=== PATIENT | female | born 1965 | race Asian ===

== ENCOUNTER 2019-01-09 08:17 | Day surgery (SDC) | payer OTHER, SELFPAY ==
[2019-01-09] MEDS: PROPARACAINE 0.5% OPHTH SOL 2 DROPS EYE-OP (09:48)
[2019-01-09] MEDS: CATARACT EYE COMPOUND (10 DROPS/SYRINGE) 3 DROPS EYE-OP ×3 (09:50→10:04)
[2019-01-09 09:52] VITALS: BP 126/76; PULSE 64; RESP 14; TEMP 36.5; O2SAT 99; BMI 29.9
--- NOTE | 2019-01-09 10:27 | PM.PREOP ---
Pre-operative Note Interval Note History & Physical reviewed/Exam performed by Physician: No Changes to H&P: No
--- NOTE | 2019-01-09 10:27 | PM.OP.1 ---
Operative Date/Time/Diagnoses Pre-op diagnosis: Nuclear cataract right eye Procedure & Clinicians Procedure: Cataract Surgery Same procedure as scheduled: Yes Surgeon: Kian Pierce Anesthesia Type: MAC +/- and Sedation Operative Notes Procedure in detail: Patient brought to the operating suite. Tetracaine drops placed in the right eye. Patient was prepped and draped in sterile manner. Wire lid speculum was placed in the eye. Betadine drops were placed on the eye. This was irrigated. Lidocaine jelly was placed on the eye. A paracentesis port was created with a side-port blade. 0.1 mL 1% preservative free lidocaine was injected into the anterior chamber. The anterior chamber was deepened with viscoelastic. 2.6 mm keratome was used to create a temporal clear corneal incision. Cystotome and Utrata forceps were used to create continuous tear capsulorrhexis. Balanced salt solution was used to hydro dissect the nucleus. The Miloop was used to crack the nucleous. The phacoemulsification handpiece was inserted and the nucleus was removed using the stop and chop technique. The irrigation aspiration handpiece was inserted and the remaining cortex was removed. Anterior chamber was deepened with viscoelastic. An Martinez ZCB00 intraocular lens with a power of 23.0 was injected into the capsular bag. Irrigation aspiration handpiece was inserted and the remaining viscoelastic was removed. Incision was hydrated with balanced salt solution and found to be leak free with pressure with Weck-Shanika sponges. 0.1 mL Vigamox injected anterior chamber. 0.3 mL Kenalog 10 mg was injected subconjunctivally. Lid speculum was removed. The patient left the operating room in excellent condition. Complications: none Post-operative Condition: stable Disposition: same day surgery
[2019-01-09] MEDS: LIDOCAINE JELLY 2% 5 ML 1 APPLIC TOP (11:08)
[2019-01-09] MEDS: CHONDROIDTIN/SOD HYALURONATE 1.05 ML SYRINGE INTRAOCULA (11:08)
[2019-01-09] MEDS: MOXIFLOXACIN INJ 5 MG/ML VIAL EYE-OP (11:08)
[2019-01-09] MEDS: TETRACAINE 0.5% OPHTH DROPS 4 ML 2 DROPS EYE-OP (11:09)
[2019-01-09] MEDS: PHENYLEPHRINE/LIDOCAINE VIAL (OR) 0.2 ML EYE-OP (11:09)
[2019-01-09] MEDS: BALANCED SALT IRRIG SOLN NO.2 500 ML, EPINEPHrine 1 MG IRR (11:09)
[2019-01-09] MEDS: TRIAMCINOLONE 50 MG/5 ML VIAL INJ (11:09)
[2019-01-09 11:30] VITALS: BP 130/79; PULSE 77; RESP 16; TEMP 36.1; O2SAT 99
[2019-01-09] MEDS: LACTATED RINGERS 1,000 ML 1000 ML IV (11:43)
[2019-01-09] MEDS: FAMOTIDINE 20 MG/50 ML PIGGYBACK 200 MG IV (11:44)
--- NOTE | 2019-01-09 11:47 | SUR.PHASEII ---
Pt nauseated on arrival, diaphoretic, cool towel to neck, zofran given by anesthesiologist, pt still nauseated, Dr Cast at bedside, VSS, IV fluid bolus started and famotidine given.
[2019-01-09 11:50] VITALS: BP 120/65; PULSE 70; RESP 16; TEMP 36.1; O2SAT 99
--- NOTE | 2019-01-09 11:55 | SUR.PHASEII ---
Pt still vomiting, dr ott aware, scopoamione patch and narcan ordered.
[2019-01-09] MEDS: SCOPOLAMINE 1 PATCH TOP (12:02)
[2019-01-09] MEDS: NALOXONE 0.4 MG/ML VIAL 0.1 MG IV (12:28)
[2019-01-09 12:31] VITALS: BP 119/69; PULSE 79; RESP 16; O2SAT 99
[2019-01-09] MEDS: METOCLOPRAMIDE 10 MG/2 ML INJ IV (12:57)
--- NOTE | 2019-01-09 14:28 | SUR.PHASEII ---
Narcan x 2 given then pt still vomiting, Marielos rn spoke with dr ott to bedside, reglan ordered, and given pt w/ and wanting to go home, called and is on his way. no further nausea
[2019-01-09 14:31] VITALS: BP 121/78; PULSE 88; RESP 16; TEMP 36.1; O2SAT 97
--- NOTE | 2019-01-09 14:33 | SUR.PHASEII ---
d/c instructions discussed earlier with . he vpiced an understanding.
--- NOTE | 2019-01-09 16:02 | SUR.PHASEII ---
Pt ready to go home, family called, returned to pick pt up. Pt still slightly queasy, but not vomiting or dry heaving.
== END 2019-01-09 15:00 | disposition home or self-care (01) ==
LOC: OR 08:18
PROVIDERS: Family Provider Family Medicine; PCP Family Medicine; Visit Provider Ophthalmology
PROC: (CPT 66984; principal; 2019-01-09 10:15)
DX: H25.11 Age-related nuclear cataract, right eye (principal)
CPT/HCPCS: 66984; J0171; J2250; J2310; J2405; J2765; J3010; J3301

== ENCOUNTER 2019-01-23 10:59 | Day surgery (SDC) | payer OTHER, SELFPAY ==
[2019-01-23 11:19] VITALS: BMI 29.2
[2019-01-23] MEDS: PROPARACAINE 0.5% OPHTH SOL 2 DROPS EYE-OP (11:19)
[2019-01-23] MEDS: CATARACT EYE COMPOUND (10 DROPS/SYRINGE) 3 DROPS EYE-OP (11:23)
[2019-01-23 11:24] VITALS: BP 145/86; PULSE 67; RESP 16; TEMP 36.6; O2SAT 100
--- NOTE | 2019-01-23 11:44 | PM.PREOP ---
Pre-operative Note Interval Note History & Physical reviewed/Exam performed by Physician: No Changes to H&P: No
--- NOTE | 2019-01-23 11:44 | PM.OP.1 ---
Operative Date/Time/Diagnoses Pre-op diagnosis: Nuclear Cataract Left eye Post-op diagnosis: same Procedure & Clinicians Surgeon: Kian Pierce Anesthesia Type: MAC +/- and Sedation Operative Notes Procedure in detail: Patient brought to the operating suite. Tetracaine drops placed in the left eye. Patient was prepped and draped in sterile manner. Wire lid speculum was placed in the eye. Betadine drops were placed on the eye. This was irrigated. Lidocaine jelly was placed on the eye. A paracentesis port was created with a side-port blade. 0.1 mL 1% preservative free lidocaine was injected into the anterior chamber. The anterior chamber was deepened with viscoelastic. 2.6 mm keratome was used to create a temporal clear corneal incision. Cystotome and Utrata forceps were used to create continuous tear capsulorrhexis. Balanced salt solution was used to hydro dissect the nucleus. The phacoemulsification handpiece was inserted and the nucleus was removed using the stop and chop technique. The irrigation aspiration handpiece was inserted and the remaining cortex was removed. Anterior chamber was deepened with viscoelastic. An Martinze ZCB00 intraocular lens with a power of 23.5 was injected into the capsular bag. Irrigation aspiration handpiece was inserted and the remaining viscoelastic was removed. Incision was hydrated with balanced salt solution and found to be leak free with pressure with Weck-Shanika sponges. 0.1 mL Vigamox injected anterior chamber. 0.3 mL Kenalog 10 mg was injected subconjunctivally. Lid speculum was removed. The patient left the operating room in excellent condition. Complications: none Post-operative Condition: stable Disposition: same day surgery
--- NOTE | 2019-01-23 11:59 | SUR.OPER ---
Supine on eye stretcher, head on extension cradle secured with tape. Arms tucked at sides with blanket. Pillow under knees.
[2019-01-23] MEDS: LIDOCAINE JELLY 2% 5 ML 1 APPLIC TOP (12:02)
[2019-01-23] MEDS: CHONDROIDTIN/SOD HYALURONATE 1.05 ML SYRINGE INTRAOCULA (12:02)
[2019-01-23] MEDS: PHENYLEPHRINE/LIDOCAINE VIAL (OR) 0.2 ML EYE-OP (12:03)
[2019-01-23] MEDS: MOXIFLOXACIN INJ 5 MG/ML VIAL EYE-OP (12:03)
[2019-01-23] MEDS: TRIAMCINOLONE 50 MG/5 ML VIAL INJ (12:04)
[2019-01-23] MEDS: TETRACAINE 0.5% OPHTH DROPS 4 ML 2 DROPS EYE-OP (12:04)
[2019-01-23] MEDS: BALANCED SALT IRRIG SOLN NO.2 500 ML, EPINEPHrine 1 MG IRR (12:05)
[2019-01-23 12:15] VITALS: BP 122/81; PULSE 64; RESP 15; TEMP 36.5; O2SAT 96
--- NOTE | 2019-01-23 13:24 | SUR.PHASEII ---
SHIMON russell per Dr. Morse.
--- NOTE | 2019-01-23 13:24 | SUR.PHASEII ---
1220 pt denied nausea or pain. Requested to discharge.
== END 2019-01-23 12:28 | disposition home or self-care (01) ==
PROVIDERS: Family Provider Family Medicine; PCP Family Medicine; Visit Provider Ophthalmology
PROC: (CPT 66984; principal; 2019-01-23 12:45)
DX: H25.12 Age-related nuclear cataract, left eye (principal)
CPT/HCPCS: 66984; J0171; J2250; J2405; J2704; J3010; J3301

== ENCOUNTER 2020-05-30 18:23 | Emergency (ER) | payer OTHER, SELFPAY ==
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
[2020-05-30 18:32] VITALS: PULSE 78; RESP 16; O2SAT 97
[2020-05-30] MEDS: SODIUM CHLORIDE 0.9% 1,000 ML 150 ML IV (18:36)
[2020-05-30] MEDS: ONDANSETRON 4 MG/2 ML INJ IV (18:36)
[2020-05-30 18:39] VITALS: BP 187/86; PULSE 75; RESP 24; TEMP 37.1; O2SAT 97; BMI 28.8
[2020-05-30 18:58] LABS: Add Manual Diff / Slide Review NO; Basophils Absolute Auto 100 /uL (0-100); Basophils Percent Auto 0.6 % (0-2); Eosinophils Absolute Auto 200 /uL (0-450); Eosinophils Percent Auto 1.4 % (2-4); Hematocrit 43.1 % (36-46); Lymphocytes Absolute Auto 4900 /uL (1100-4500); Lymphocytes Percent Auto 37.1 % (25-40); Mean Corpuscular HGB Conc 32.4 % (30-36); Mean Corpuscular Hemoglobin 26.9 PG (26-34); Mean Corpuscular Volume 83.1 fL (80-100); Monocytes Absolute Auto 800 /uL (0-900); Neutrophils Absolute Auto 7200 /uL (1500-7000); Neutrophils Percent Auto 54.9 % (50-75); Platelet Count 302 X10^3/uL (150-400); Red Blood Cell Count 5.19 X10^6/uL (4.0-5.2); Red Cell Distribution Width 13.8 % (11.6-14.8); White Blood Cell Count 13.2 X10^3/uL (4.5-11.0)
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
[2020-05-30 19:00] VITALS: BP 173/84; PULSE 81; RESP 16; O2SAT 95
[2020-05-30 19:06] LABS: Alanine Aminotransferase 22 IU/L (<35); Albumin 4.2 g/dL (3.5-5.0); Albumin Globulin Ratio 1.2 (1.0-2.8); Alkaline Phosphatase 143 U/L (38-126); Aspartate Aminotransferase 24 IU/L (14-36); BUN Creatinine Ratio 41.9 (6-22); Bilirubin Total 0.4 mg/dL (0.2-1.3); Blood Urea Nitrogen 18 mg/dL (7-17); Calcium 9.1 mg/dL (8.4-10.2); Carbon Dioxide 26 mmol/L (22-32); Chloride 103 mmol/L (98-107); Creatine Kinase 169 U/L (30-135); Estimated Glomerular Filt Rate > 60.0 mL/min (>60); Ethanol (ETOH) < 10 mg/dL; Globulin 3.4 g/dL (1.7-4.1); Glucose 250 mg/dL (70-100); HEMOLYSIS < 15 (0-50); Lipase 114 U/L (23-300); Potassium 3.3 mmol/L (3.4-5.1); Sodium 135 mmol/L (137-145); Total Protein 7.6 g/dL (6.3-8.2)
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
[2020-05-30 19:17] LABS: Troponin I < 0.012 ng/mL (0.01-0.034)
[2020-05-30 19:21] LABS: CKMB % Relative Index 1.6 % (1.5-5.0); Creatine Kinase MB 2.66 ng/mL (<2.37)
[2020-05-30 19:47] LABS: Bacteria Urine None Seen; RBC Urine None Seen (0-5/HPF)
[2020-05-30 19:48] LABS: Appearance Urine UA CLEAR; Bilirubin Urine UA NEGATIVE (NEGATIVE); Color Urine UA YELLOW; Glucose Urine UA 1+ g/dL (Negative); Ketones Urine UA TRACE (NEGATIVE); Leukocyte Esterase Urine UA NEGATIVE (NEGATIVE); Nitrite Urine UA NEGATIVE (Negative); Occult Blood Urine UA NEGATIVE (Negative); Protein Urine UA NEGATIVE (Negative); Urobilinogen Urine UA 0.2 E.U./dL (0.2)
[2020-05-30 20:00] VITALS: PULSE 98; RESP 21; O2SAT 94
[2020-05-30 20:02] LABS: Culture Indicated Urine Cult Not Indicated; Squamous Epithelial Cell Urine 1-5 /HPF (0-5/HPF); WBC Urine 1-5/HPF (0-5/HPF)
[2020-05-30 20:21] VITALS: BP 138/73; PULSE 92; RESP 19; O2SAT 94
[2020-05-30] MEDS: ONDANSETRON 4 MG ODT PREPACK 1 BOTTLE MISC (20:28)
[2020-05-30] MEDS: CYCLOBENZAPRINE 10 MG PREPACK 1 BOTTLE MISC (20:29)
== END 2020-05-30 20:43 | disposition home or self-care (01) ==
PROVIDERS: Emergency Provider Emergency Medicine; Family Provider Family Medicine; PCP Family Medicine
DX: S16.1XXA Strain of muscle, fascia and tendon at neck level, initial encounter (principal); S23.9XXA Sprain of unspecified parts of thorax, initial encounter; S80.02XA Contusion of left knee, initial encounter; M54.6 Pain in thoracic spine; R11.0 Nausea; V89.2XXA Person injured in unspecified motor-vehicle accident, traffic, initial encounter
CPT/HCPCS: 36415; 70450; 71045; 71260; 72125; 72170; 74177; 80053; 80320; 81001; 82550; 82553; 83690; 84484; 85025; 86850; 86900; 86901; 93005; 96361; 96374; 99284; 99285; J2405

== ENCOUNTER → 2021-03-30 14:14 | Outpatient (CLI) | payer OTHER, SELFPAY ==
--- NOTE | 2021-03-30 14:17 | DI.MRI.S_ITS ---
PROCEDURE: MR KNEE RT WO CON INDICATIONS: Unspecified internal derangement of right knee TECHNIQUE: Noncontrast sagittal PD fast spin echo and T2 fast spin echo with fat saturation, sagittal 3-D FLASH with fat saturation; coronal T1 spin echo and PD fast spin echo with fat saturation, and axial PD fast spin echo with fat saturation through the knee. COMPARISON: None. FINDINGS: Image quality: Excellent. Menisci: Medial meniscus is grossly intact. There is complex tear involving anterior horn of lateral meniscus extending to both superior and inferior articulating surfaces. The meniscal root ligaments appear intact. Cruciate ligaments: Myxoid degenerative changes and low-grade intrasubstance partial-thickness tear involving anterior cruciate ligament is seen without full-thickness ACL rupture. PCL is intact. Medial structures: Low-grade MCL sprain is noted. The posterior oblique ligament, semimembranosus tendon insertions, oblique popliteal ligament, and meniscocapsular junction appear intact. Visualized portions of the pes anserinus tendons appear normal. No abnormal bursal fluid. Lateral structures: There is low-grade LCL sprain. The long and short heads of the biceps femoris tendon appear intact. The popliteus tendon appears normal; the popliteofibular ligament appears intact. The posterosuperior and anteroinferior popliteomeniscal fascicles appear intact. The arcuate and fabellofibular ligaments appear intact, on either side of the lateral inferior geniculate artery. Iliotibial band appears normal. Anterior structures: The quadriceps and patellar tendons appear intact. Patellar alignment is normal. No femoral trochlear dysplasia or ventral trochlear prominence. No edema in the infrapatellar fat pad. Bones and cartilage: Mild tricompartmental osteoarthritis and low-grade chondromalacia is seen. No fracture or dislocation. Joint space: There is small to moderate amount of joint fluid, no gross intra-articular loose bodies. There is a small Trejo's cyst. Normal appearing synovial plicae are incidentally noted. IMPRESSION: 1. Complex tear involving anterior horn of lateral meniscus extending to both superior and inferior articulating surfaces. No definite focal medial meniscal tear. 2. Myxoid degenerative changes and low-grade intrasubstance partial-thickness tear involving anterior cruciate ligament. No full-thickness ACL rupture. PCL is intact. 3. Low-grade MCL and LCL sprain. 4. Mild tricompartmental osteoarthritis and low-grade chondromalacia. No fracture or dislocation. Small to moderate joint effusion, no gross loose bodies. Small popliteal cyst. Dictated by: Kj Blank M.D. on 03/30/2021 at 15:35 Approved by: Kj Blank M.D. on 03/30/2021 at 15:38
== END ==
PROVIDERS: Family Provider Family Medicine; PCP Family Medicine; Referring Provider Orthopaedic Surgery; Visit Provider Orthopaedic Surgery
DX: S83.271A Complex tear of lateral meniscus, current injury, right knee, initial encounter (principal); S83.511A Sprain of anterior cruciate ligament of right knee, initial encounter; S83.411A Sprain of medial collateral ligament of right knee, initial encounter; S83.421A Sprain of lateral collateral ligament of right knee, initial encounter; M17.11 Unilateral primary osteoarthritis, right knee; M94.261 Chondromalacia, right knee
CPT/HCPCS: 73721

== ENCOUNTER 2022-10-27 08:27 | Emergency (ER) | payer OTHER, SELFPAY ==
[2022-10-27 08:31] VITALS: BP 131/84; PULSE 74; RESP 19; TEMP 36.8; O2SAT 97; BMI 26.4
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
--- NOTE | 2022-10-27 08:35 | ED_ITS ---
HPI - General Adult General Chief complaint: Wound/Laceration Stated complaint: L&I cut fingers Time Seen by Provider: 10/27/22 08:33 History of Present Illness HPI narrative: 57-year-old female nonsmoker presents with a work-related injury to the fingers on her left hand. She was working at a local [employer] and cut her fingers on saw, most notably her middle finger has a deep cut resulting in pain and bleeding. She denies obvious numbness, tingling or weakness. She states her tetanus will need to be updated. She is otherwise well and free of complaint. Related Data Home Medications Medication Instructions Recorded Confirmed ibuprofen 200 mg tablet (Advil) 400 mg PO Q6H PRN Pain (Scale 01/23/19 11/23/21 Score 1-3) Previous Rx's Medication Instructions Recorded cyclobenzaprine 10 mg tablet 10 mg PO TID PRN muscle spasm #14 05/30/20 tabs hydrocodone 5 mg-acetaminophen 325 1 tab PO Q4-6H PRN pain #10 tabs 05/30/20 mg tablet ketorolac 10 mg tablet 10 mg PO Q6H PRN pain #14 tabs 05/30/20 ondansetron 4 mg disintegrating 4 mg PO TID-QID PRN nausea and 05/30/20 tablet vomiting #10 tabs benzonatate 100 mg capsule 100 mg PO BID-TID PRN cough #14 04/27/21 caps cephalexin 500 mg capsule 500 mg PO Q6H 7 days #28 caps 10/27/22 hydrocodone 5 mg-acetaminophen 325 1 tab PO Q4-6H PRN pain #10 tabs 10/27/22 mg tablet ondansetron 4 mg disintegrating 4 mg PO TID-QID PRN nausea and 10/27/22 tablet vomiting #10 tabs Allergies Allergy/AdvReac Type Severity Reaction Status Date / Time tramadol AdvReac Vomiting Verified 10/27/22 09:22 Review of Systems Review of Systems Narrative: GENERAL: Denies chills, fatigue, malaise, fever, sweats. HEENT: Denies sinus pain, ear pain, sore throat, difficulty swallowing, dizziness. RESPIRATORY: Denies dyspnea, cough, wheezing, hemoptysis, sputum. CARDIOVASCULAR: Denies chest pain, palpitations, orthopnea, edema, GASTROINTESTINAL: Denies nausea, vomiting, abdominal pain, diarrhea, constipation, melena. : Denies dysuria, frequency, incontinence, hematuria, urinary retention. MUSCULOSKELETAL: See HPI SKIN: Denies rash, skin lesions, or other NEUROLOGIC: Denies weakness, headache, numbness, change in speech, confusion, seizures, incoordination. PSYCHIATRIC: No concerning psychosocial issues. 12 point review of systems is negative except for those stated above Patient History Surgical History History of Social History (System 10/27/22 @ 09:22 by Christy Vigil) household members: spouse and children Smoking Status: Never smoker Exam Narrative Exam Narrative: GENERAL: [57] year old patient appears stated age. Well-developed patient, in mild distress. HEAD: Atraumatic. Normocephalic. EYES: Pupils equal round and reactive. Extraocular motions intact. No scleral icterus. No injection or drainage. ENT: Nose without bleeding, purulent drainage. Throat without erythema, tonsillar hypertrophy or exudate. Airway patent. NECK: Trachea midline. Non tender CARDIOVASCULAR: Regular rate and rhythm without murmurs, gallops, or rubs. RESPIRATORY: Clear to auscultation. Breath sounds equal bilaterally. No wheezes, rales, or rhonchi. GASTROINTESTINAL: Abdomen soft, non-tender, nondistended. EXTREMITIES: Left middle with partial tip avulsion, oozing bleeding, no visualized bone, foreign body or tendon involvement. No nail, nail bed or nail fold involvement. Slightly less than 1 x 1 cm. Ring finger has a very superficial laceration through the tip of the nail BACK: Nontender without deformity or crepitance. No flank tenderness. NEURO: AOx3. SKIN: No rash or erythema of visible areas Initial Vital Signs Initial Vital Signs: Vital Signs Temperature 98.2 F 10/27/22 08:31 Pulse Rate 74 10/27/22 08:31 Respiratory Rate 19 10/27/22 08:31 Blood Pressure 131/84 10/27/22 08:31 Pulse Oximetry 97 10/27/22 08:31 Oxygen Delivery Method Room Air 10/27/22 08:31 Procedures Laceration Repair Laceration 1: Site: hand Side (If applicable): left Size (cm): 1 Description: other (partial tip avulsion, for bleeding control only) Depth: simple, single layer Pre-repair: wound explored and cleansed with chlorhexadine Skin layer closed with: nylon Skin layer suture size: 4-0 Number of sutures: 4 Technique: simple, interrupted Laceration 2: Site: hand Side (If applicable): left Size (cm): 0.25 Description: linear Depth: simple, single layer Pre-repair: wound explored and cleansed with chlorhexadine Skin layer closed with: dermabond Nerve Block Nerve Block 1: Local Anesthetic: lidocaine 1% Amount of anesthesia used (mL): 6 Nerve Blocks: digital Procedure Successful: Yes Patient Tolerated Procedure: Well Complications: none Orthopedic Splinting/Casting Injury #1: Upper Extremity Injury Location: finger Upper Extremity Immobilizer: finger (other) (tube gauze) Course Orders Ordered: Discontinued Medications Diphtheria/Tetanus/Acell Pertussis (Tet,Diph,Pertuss(Acell),Vac/Pf 0.5 Ml Syringe) 0.5 ml IM .ONCE ONE Stop: 10/27/22 08:34 Last Admin: 10/27/22 08:43 Dose: 0.5 ml Documented By: ELIZA Medical Decision Making MDM Narrative Medical decision making narrative: [57] year old patient presents with accidental work-related injury resulting in partial tip amputation with less than 1 x 1 cm area loss Multiple etiologies for patient's symptoms considered including, but not limited to: [Soft tissue loss versus bony injury versus other] Prior Charts reviewed in our EMR Primary Historian: patient Imaging reviewed: No bony involvement Patient's symptoms improved over duration of stay with above-stated therapies. Lacerations with soft tissue loss, digital block prior to extensive cleaning, sutures for bleeding control only, tetanus up-to-date, placed on antibiotics, splinted, follow-up with wound care discussed with patient and her advocates. Return precautions discussed Findings and discharge diagnosis discussed with patient/family followed by verbalization of understanding Return precautions discussed with patient/family whom verbalize understanding of diagnosis and plan Discharge Plan Departure Patient Disposition: Home Clinical Impression: Amputation of finger tip Instructions: DI for Laceration Repair Activity Restrictions/Additional Instructions: *You have been diagnosed with [left middle finger partial tip amputation without bony or tendinous involvement.] *What to do: *Please continue to take your regular medications as directed. [x ] New medication prescriptions sent to your pharmacy: [[facility]] [ ] New medication written as a paper prescription [ ] No new medications given *Please follow up with your primary care provider in 2-3 days, call for an appointment. Let them know you were seen in the Emergency Department and that we ask that you be seen in follow up. We will electronically transmit a record of today's note if your PCP is in our system *If you do not have a primary care provider please contact the [facility] Resource line at [phone]. They will ask some questions about your medical history and help get you set up with a doctor in the community. *Return to Emergency Department if you should have any new, worsening or concerning symptoms, such as [fever greater than 101 F, shaking chills, worsening pain, persistent vomiting or other bothersome symptoms] You have been prescribed a short course of narcotic medications. These are potentially dangerous and addictive medications that should be used carefully. While on these medications you cannot drive or operate heavy machinery. Addit ionally, you cannot sign legal documents or perform any duties such as this. Many people get constipated on narcotic medications so it would be advisable to discuss stool softeners with the pharmacist when you sampler pickup your prescription. Please understand that we cannot provide further refills of narcotics or controlled substances through the ED and your pain management will need to be through your Primary Care Provider Prescriptions: New hydrocodone-acetaminophen 5-325 mg tablet 1 tab PO Q4-6H PRN (Reason: pain) Qty: 10 0RF cephalexin 500 mg capsule 500 mg PO Q6H 7 Days Qty: 28 0RF ondansetron 4 mg tablet,disintegrating 4 mg PO TID-QID PRN (Reason: nausea and vomiting) Qty: 10 0RF No Action benzonatate 100 mg capsule 100 mg PO BID-TID PRN (Reason: cough) Qty: 14 0RF cyclobenzaprine 10 mg tablet 10 mg PO TID PRN (Reason: muscle spasm) Qty: 14 0RF hydrocodone-acetaminophen 5-325 mg tablet 1 tab PO Q4-6H PRN (Reason: pain) Qty: 10 0RF ketorolac 10 mg tablet 10 mg PO Q6H PRN (Reason: pain) Qty: 14 0RF ondansetron 4 mg tablet,disintegrating 4 mg PO TID-QID PRN (Reason: nausea and vomiting) Qty: 10 0RF ibuprofen [Advil] 200 mg Tablet 400 mg PO Q6H PRN (Reason: Pain (Scale Score 1-3)) Referrals: Jose Rual Chun MD [Non-Staff] - Miscellaneous,DoctorMD [Primary Care Provider] - Stand Alone Forms: Patient Portal/API
[2022-10-27] MEDS: TET,DIPH,PERTUSS(ACELL),VAC/PF 0.5 ML SYRINGE IM (08:43)
[2022-10-27] MEDS: LIDOCAINE 1% 20 ML (10:08)
[2022-10-27 10:19] VITALS: BP 135/67; PULSE 65; O2SAT 99
== END 2022-10-27 10:19 | disposition home or self-care (01) ==
PROVIDERS: Emergency Provider Emergency Medicine
DX: S68.123A Partial traumatic metacarpophalangeal amputation of left middle finger, initial encounter (principal); W45.8XXA Other foreign body or object entering through skin, initial encounter; Z23 Encounter for immunization; Y99.0 Civilian activity done for income or pay
CPT/HCPCS: 12001; 73130; 90471; 99284; 90715

== ENCOUNTER → 2022-11-02 13:38 | Outpatient (CLI) | payer OTHER, SELFPAY | PROVIDERS: PCP Family Medicine; Referring Provider Emergency Medicine; Visit Provider Surgery | DX: S61.213A Laceration without foreign body of left middle finger without damage to nail, initial encounter (principal) | CPT/HCPCS: 97597; 99203; 99212 ==

== ENCOUNTER → 2022-11-04 13:21 | Outpatient (CLI) | payer OTHER, SELFPAY | PROVIDERS: PCP Family Medicine; Referring Provider Emergency Medicine; Visit Provider Surgery | DX: S61.215A Laceration without foreign body of left ring finger without damage to nail, initial encounter (principal) | CPT/HCPCS: 99212; 99213 ==

== ENCOUNTER → 2022-11-08 09:42 | Outpatient (CLI) | payer OTHER, SELFPAY | PROVIDERS: PCP Family Medicine; Referring Provider Emergency Medicine; Visit Provider Surgery | DX: S61.213A Laceration without foreign body of left middle finger without damage to nail, initial encounter (principal) | CPT/HCPCS: 99212 ==

== ENCOUNTER → 2022-11-11 14:19 | Outpatient (CLI) | payer OTHER, SELFPAY | PROVIDERS: PCP Family Medicine; Referring Provider Emergency Medicine; Visit Provider Surgery | DX: S61.213A Laceration without foreign body of left middle finger without damage to nail, initial encounter (principal) | CPT/HCPCS: 99212; 99213 ==

== ENCOUNTER → 2022-11-15 13:30 | Outpatient (CLI) | payer OTHER, SELFPAY | PROVIDERS: PCP Family Medicine; Referring Provider Emergency Medicine; Visit Provider Surgery | DX: S61.213A Laceration without foreign body of left middle finger without damage to nail, initial encounter (principal) | CPT/HCPCS: 99213 ==

== ENCOUNTER → 2022-11-18 09:00 | Outpatient (CLI) | payer OTHER, SELFPAY | PROVIDERS: PCP Family Medicine; Referring Provider Emergency Medicine; Visit Provider Physician Assistant | DX: S61.213A Laceration without foreign body of left middle finger without damage to nail, initial encounter (principal) | CPT/HCPCS: 99213 ==

== ENCOUNTER → 2022-11-22 15:43 | Outpatient (CLI) | payer OTHER, SELFPAY | PROVIDERS: PCP Family Medicine; Referring Provider Emergency Medicine; Visit Provider Surgery | DX: S61.303A Unspecified open wound of left middle finger with damage to nail, initial encounter (principal) | CPT/HCPCS: 17250; 99213 ==

== ENCOUNTER → 2022-11-25 13:15 | Outpatient (CLI) | payer OTHER, SELFPAY | PROVIDERS: PCP Family Medicine; Referring Provider Emergency Medicine; Visit Provider Surgery | DX: S61.213A Laceration without foreign body of left middle finger without damage to nail, initial encounter (principal) | CPT/HCPCS: 99213 ==

== ENCOUNTER → 2022-11-29 14:05 | Outpatient (CLI) | payer OTHER, SELFPAY | PROVIDERS: PCP Family Medicine; Referring Provider Emergency Medicine; Visit Provider Surgery | DX: S61.303A Unspecified open wound of left middle finger with damage to nail, initial encounter (principal) | CPT/HCPCS: 99212; 99213 ==

== ENCOUNTER → 2022-12-02 15:08 | Outpatient (CLI) | payer OTHER, SELFPAY | PROVIDERS: PCP Family Medicine; Referring Provider Internal Medicine; Visit Provider Surgery | DX: S61.213A Laceration without foreign body of left middle finger without damage to nail, initial encounter (principal) | CPT/HCPCS: 99213 ==

== ENCOUNTER → 2022-12-06 14:27 | Outpatient (CLI) | payer OTHER, SELFPAY | PROVIDERS: PCP Family Medicine; Referring Provider Emergency Medicine; Visit Provider Surgery | DX: S61.303D Unspecified open wound of left middle finger with damage to nail, subsequent encounter (principal) | CPT/HCPCS: 99212; 99214 ==

== ENCOUNTER 2023-04-16 16:53 | Emergency (ER) | payer OTHER, SELFPAY ==
[2023-04-16] VITALS (20 sets, daily range): BP systolic 132–163; BP diastolic 76–87; PULSE 77–92; RESP 16–28; TEMP 36.8; O2SAT 94–100
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
[2023-04-16 18:07] LABS: Add Manual Diff / Slide Review NO; Basophils Absolute Auto 100 /uL (0-100); Basophils Percent Auto 0.6 % (0-2); Eosinophils Absolute Auto 100 /uL (0-450); Eosinophils Percent Auto 0.6 % (2-4); Hematocrit 43.3 % (36-46); Hemoglobin 14.4 g/dL (12.0-16.0); Lymphocytes Absolute Auto 2000 /uL (1100-4500); Mean Corpuscular HGB Conc 33.3 % (30-36); Mean Corpuscular Hemoglobin 27.6 PG (26-34); Monocytes Absolute Auto 600 /uL (0-900); Monocytes Percent Auto 5.9 % (3-14); Neutrophils Absolute Auto 8200 /uL (1500-7000); Neutrophils Percent Auto 74.9 % (50-75); Platelet Count 267 X10^3/uL (150-400); Red Blood Cell Count 5.21 X10^6/uL (4.0-5.2); Red Cell Distribution Width 14.2 % (11.6-14.8); White Blood Cell Count 10.9 X10^3/uL (4.5-11.0)
[2023-04-16 18:11] LABS: INR 1.2 (0.9-1.3); Prothrombin Time 13.4 SECONDS (9.4-12.5)
[2023-04-16 18:14] LABS: PTT Partial Thromboplastin Tim 27 SECONDS (25.1-36.5)
[2023-04-16] MEDS: KETOROLAC 30 MG/ML VIAL 15 MG IV (18:21)
[2023-04-16] MEDS: TET,DIPH,PERTUSS(ACELL),VAC/PF 0.5 ML SYRINGE IM (18:21)
[2023-04-16] MEDS: SODIUM CHLORIDE 0.9% 1,000 ML 1000 ML IV (18:22)
[2023-04-16 18:23] LABS: Lactate (Lactic Acid) 0.8 mmol/L (0.7-2.1)
[2023-04-16 18:25] LABS: Alanine Aminotransferase 26 IU/L (<35); Albumin 4.4 g/dL (3.5-5.0); Albumin Globulin Ratio 1.2 (1.0-2.8); Alkaline Phosphatase 83 U/L (38-126); Aspartate Aminotransferase 28 IU/L (14-36); Bilirubin Total 0.7 mg/dL (0.2-1.3); Blood Urea Nitrogen 21 mg/dL (7-17); Calcium 9.9 mg/dL (8.4-10.2); Carbon Dioxide 29 mmol/L (22-32); Chloride 102 mmol/L (98-107); Estimated Glomerular Filt Rate > 60 mL/min (>60); Ethanol (ETOH) < 10 mg/dL; Globulin 3.6 g/dL (1.7-4.1); Glucose 179 mg/dL (70-100); HEMOLYSIS 15 (0-50); Lipase 135 U/L (23-300); Potassium 4.2 mmol/L (3.4-5.1); Sodium 139 mmol/L (137-145)
[2023-04-16 18:39] LABS: UR Morphine/Opiate cutoff 300 Negative (Negative); Ur Creatinine Normal (Normal); Ur Specific Gravity Normal (Normal); Urine Amphetamines Negative (Negative); Urine Barbiturates Negative (Negative); Urine Benzodiazepines Negative (Negative); Urine Cocaine Negative (Negative); Urine MDMA Negative (Negative); Urine Methadone Negative (Negative); Urine Methamphetamines Negative (Negative); Urine Oxycodone Negative (Negative); Urine Phencyclidine Negative (Negative); Urine Tetrahydrocannabinol Negative (Negative); Urine Tricyclic Antidepressant Negative (Negative); Urine pH Normal (Normal)
[2023-04-16] MEDS: OXYCODONE/ACETAMINOPHEN 5/325 TABLET 1 TAB PO (20:08)
[2023-04-16] MEDS: OXYCODONE/APAP 5/325 PREPACK 1 BOTTLE MISC (20:08)
== END 2023-04-16 20:12 | disposition home or self-care (01) ==
PROVIDERS: Emergency Medicine; Emergency Provider Emergency Medicine; PCP Family Medicine
DX: S20.212A Contusion of left front wall of thorax, initial encounter (principal); S16.1XXA Strain of muscle, fascia and tendon at neck level, initial encounter; S60.812A Abrasion of left wrist, initial encounter; V89.2XXA Person injured in unspecified motor-vehicle accident, traffic, initial encounter; Z23 Encounter for immunization
CPT/HCPCS: 36415; 70450; 71260; 72125; 74177; 80053; 80305; 80320; 81003; 83605; 83690; 85025; 85610; 85730; 86850; 86900; 86901; 90471; 93005; 93010; 96361; 96374; 99285; 90715; J1885